=== PATIENT | male | born 1990 | race Caucasian/White ===

== ENCOUNTER 2017-09-06 08:43 | Emergency (ER) | payer SELFPAY ==
[2017-09-06] VITALS (7 sets, daily range): BP systolic 111–128; BP diastolic 72–83
[~2017-09-06] VITALS: Ht 165.1 cm; Wt 56.7 kg
[~2017-09-06 08:43] MED LIST: IBUPROFEN600 MG ORAL; NKM; NORCO 5-325 TA1 EACH ORAL
--- NOTE | 2017-09-06 10:19 | Diagnostic Imaging Report ---
Indication: Pain Technique: XRAY Shoulder Compl R Comparison: 02/10/2016 Findings: Anterior shoulder dislocation. No acute fracture identified. Imaged portions of the right lung clear. No radiopaque foreign body seen. Impression: Anterior shoulder dislocation. No acute fracture.
[2017-09-06] MEDS ORDERED: IBUPROFEN600 MG ORAL (12:28)
--- NOTE | 2017-09-06 12:50 | Emergency Room Report ---
History of Present Illness General Chief Complaint: Upper Extremity Injury Source: Patient Present Illness HPI Patient presents with complaints of right shoulder dislocation He has had this once a year for the past 3 years With this episode last night about 11:00 he was throwing a football when he felt his shoulder dislocate He reports that he was tired last night and cannot come in and presents now for further eval Pain is 3/10 localized right shoulder worse with pain Denies any chest or shortness of breath denies any other fall or trauma Allergies: Coded Allergies: No Known Allergies (Unverified , 03/20/15) Patient History Past Medical History: see triage record Pertinent Family History: none Reviewed Nursing Documentation: PMH: Agreed, PSxH: Agreed Nursing Documentation-PMH Past Medical History: No Stated History Review of Systems All Other Systems: negative except mentioned in HPI Physical Exam Vital Signs Date Time Temp Pulse Resp B/P (MAP) Pulse Ox O2 Delivery O2 Flow Rate FiO2 09/06/17 08:46 98.1 98 18 123/80 96 Room Air 09/06/17 11:45 2.0 Sp02 EP Interpretation: reviewed, normal General Appearance: well appearing, no apparent distress Head: normocephalic, atraumatic Eyes: bilateral eye PERRL, bilateral eye EOMI ENT: hearing grossly normal, normal pharynx, TMs + canals normal, uvula midline Neck: full range of motion, supple, no meningismus, no bony tend Respiratory: lungs clear, normal breath sounds, no rhonchi, no respiratory distress, no retraction, no accessory muscle use Cardiovascular #1: normal peripheral pulses, regular rate, rhythm, no edema, no gallop, no JVD, no murmur Gastrointestinal: normal bowel sounds, non tender, soft, no mass, no organomegaly, non-distended, no guarding, no hernia, no pulsatile mass, no rebound Genitourinary: no CVA tenderness Musculoskeletal: other - Patient has a did noticeable clinically in the right upper shoulder holding it approximately 20 adductor from the body, 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 but clinically appears to have a dislocated right shoulder Neurologic: oriented x3, responsive, dermatologist III-XII nml as tested, motor strength/ tone normal, sensory intact Psychiatric: mood/affect normal Skin: normal color, no rash, warm/dry, palpation normal Lymphatic: normal inspection, no adenopathy Procedures Splinting Splinting : Consent: Verbal Location: Right shoulder Pre-Made Type: Shoulder immobilizer Splint: Shoulder immobilizer Pre-Proc Neuro Vasc Exam: normal Post-Proc Neuro Vasc Exam: normal Patient Tolerated: Well Complications: None Joint Reduction Joint Reduction : Consent: Verbal Joint Reduction Site: shoulder (R) Procedural Sedation: Yes Reduction Attempts: One Pre-Procedure NV Exam: Yes Post-Procedure NV Exam: Yes Post Joint Reduction Film: joint reduced Patient Tolerated: Well Complications: None Procedural Sedation Consent: Written Time out called at: 11:45 Airway Assessment (Malampati): I Heart: normal Lungs: normal Abdomen: normal Extremities: normal Procedures/Plans: Closed Reduction Plan for Moderate Sedation: Propofol ASA Score: I Start Time: 11:45 End Time: 11:50 Total Time: 4 Communication: No Apparent Limitation Mental Status: Awake Respiration: Unlabored Skin Condition: WNL Abdomen: WNL Medical Decision Making Diagnostic Impression: Primary Impression: shoulder dislocation ER Course Initially attempt was made without sedation patient was laid on his stomach hanging the right arm off the gurney Patient was observed there was no reduction of the shoulder Therefore the patient was sat back in the gurney and refer to the note for procedural sedation and reduction Repeat x-ray shows good reduction patient had splint applied given that this has happened once a year for the past 2 years patient does require close follow up with specialty Other X-Ray Diagnostic Results Other X-Ray Diagnostic Results #1: X-Ray ordered: Right shoulder # of Views/Limited Vs Complete: 3 View Indication: Pain Interpretation: no soft tissue swelling, no fractures, other - Shoulder dislocation Impression: Other - Shoulder dislocation Electronically Signed by: Viviana Lucas DO Other X-Ray Diagnostic Results #2: X-Ray ordered: Right shoulder # of Views/Limited Vs Complete: 2 View Indication: Other - Reduction EP Interpretation: Yes Interpretation: no dislocation, no soft tissue swelling, no fractures Impression: No acute disease Electronically Signed by: Viviana Lucas DO Last Vital Signs Date Time Temp Pulse Resp B/P (MAP) Pulse Ox O2 Delivery O2 Flow Rate FiO2 09/06/17 11:50 88 16 115/79 100 Nasal Cannula 2.0 09/06/17 11:39 98.8 Status: improved Disposition: HOME, SELF-CARE Condition: Improved Scripts Ibuprofen* (MOTRIN*) 600 Mg Tablet 600 MG ORAL Q8H Y for For Pain, #30 TAB 0 Refills Prov: VIVIANA LUCAS D.O. 09/06/17 Referrals: NOT CHOSEN IPA/MD,REFERRING (PCP) Patient Instructions: Shoulder Dislocation, [id number] Additional Instructions: Patient is provided with the discharge instructions notified to follow up with primary doctor in the next 2-3 days otherwise return to the er with any worsening symptoms. Please note that this report is being documented using [employer] technology. This can lead to erroneous entry secondary to incorrect interpretation by the dictating instrument. VIVIANA LUCAS D.O. Sep 06, 2017 12:50
--- NOTE | 2017-09-06 13:11 | Diagnostic Imaging Report ---
Indication: Shoulder dislocation. Technique: XRAY Shoulder Ltd 1v R Comparison: Earlier the same day. Findings: Interval reduction of the previously seen anterior shoulder dislocation with voodoo of anatomic alignment. No acute fracture identified. Imaged portions of the right lung are clear. Impression: Successful reduction of the previously seen anterior shoulder dislocation. No acute fracture.
[2017-09-06] MEDS ORDERED: Propofol 200mg/20ml IV ONE (13:15)
== END 2017-09-06 14:01 | disposition home or self-care (01) ==
LOC: EMR 09:27
DX: S43.004A Unspecified dislocation of right shoulder joint, initial encounter (principal); X58.XXXA Exposure to other specified factors, initial encounter; Y93.61 Activity, american tackle football; Y92.9 Unspecified place or not applicable
CPT/HCPCS: 23650; 73020; 73030; 96374; 99284; J2704